=== PATIENT | male | born 1980 | race Two or more races ===

== ENCOUNTER 2024-04-29 20:49 | Emergency (ER) | payer OTHER, SELFPAY ==
[2024-04-29 20:54] VITALS: BP 130/92; PULSE 72; RESP 16; TEMP 36.3; O2SAT 97; BMI 29.8
--- OUTSIDE RECORDS SUMMARY | 2024-04-29 21:06 | XMS_ITS | Continuity of Care Document ---
Author Organization [facility] Plastic Shaheen ronald Address [address] [place] [address] Drstephane tr[address] [place] [address]- Care Team Providers Care Double End Production Grinder Name Role Phone Sophia Iverson MD Primary Care Physician [place] [facility] [place] - 09/27/22 [facility] [address] [place] [address]- Attending Physician: Danette De Jesus Admitting Physician: Danette De Jesus Referring Physician: AdmtrDanette Allergies, Adverse Reactions, Alerts No Known Allergies Medications Bactrim 400 mg-80 mg oral tablet By Mouth, Every 12 hours, 0 Refills, Maintenance, 05/27/22 11:11:00 EDT, Partial fill upon patient request if the prescription is for a schedule II opioid drug. Start Date: 05/27/22 Status: Ordered Patient Care team information Care Team Personnel Name: Sophia Iverson MD Position: [facility] Outreach Member Role: PCP Address: Address: [address] [place] [id number] Care Team Related Persons Name: HEAVENLY DUNN Address: home [address] [place], [place] Name: RENATO JANUARY Address: home [address] [place], [place] Name: POLLY VILLAVICENCIO Address: home [address] [place] [address] [place] [address]
--- OUTSIDE RECORDS SUMMARY | 2024-04-29 21:06 | XMS_ITS | Continuity of Care Document ---
Author Organization [facility] Plastic Shaheen roanld Address [address] [place] [address] [address] [place] [address]- Care Team Providers Care Hide Salter Name Role Phone Sophia Iverson MD Primary Care Physician [place] [facility] [place]s): 09/29/22 - 10/06/22 [facility] [address] [place] [address]- Attending Physician: Carlos PHILLIPS, Yimi Moore Allergies, Adverse Reactions, Alerts No Known Allergies Medications Bactrim 400 mg-80 mg oral tablet By Mouth, Every 12 hours, 0 Refills, Maintenance, 05/27/22 11:11:00 EDT, Partial fill upon patient request if the prescription is for a schedule II opioid drug. Start Date: 05/27/22 Status: Ordered Vital Signs Most recent to oldest [Reference Range]: 1 Height 170 cm (09/29/22 3:08 PM) Temperature [96.8-100.4 DegF] 97.0 DegF (09/29/22 3:08 PM) Temperature Route Temporal (09/29/22 3:08 PM) Patient Care team information Care Team Personnel Name: Sophia Iverson MD Position: [facility] Outreach Member Role: PCP Address: Address: [address] [place] [address]- Care Team Related Persons Name: HEAVENLY DUNN Address: home [address] [place] [address] Name: RENATO JANUARY Address: home [address] [place], [place] Name: POLLY VILLAVICENCIO Address: home [address] [place] [address] [place] [address]
--- OUTSIDE RECORDS SUMMARY | 2024-04-29 21:06 | XMS_ITS | Continuity of Care Document ---
Author Organization [facility] Address [address] [place] [address]- Care Team Providers Care Plastics Tooling Engineer Name Role Phone Sophia Iverson MD Primary Care Physician [phone] Encounter [facility] Date(s): 03/05/24 - 03/05/[address] [address]- Discharge Disposition: A-D/C Home Attending Physician: Nabil Mayfield MD Admitting Physician: Nabil Mayfield MD Referring Physician: Not on Staff, Referring MD Allergies, Adverse Reactions, Alerts No Known Allergies Medications acetaminophen 325 mg oral tablet 650 mg, 2, tablet, By Mouth, Every 4 hours, PRN, # 30 tablet, Refills 0, Tot. Refills 0, Maintenance, for pain, 09/19/23 17:40:00 EST, Route to Pharmacy Electronically, [facility]/pharmacy #[id number], Partial fill upon patient request if the prescription is for a... Start Date: 09/19/23 Status: Ordered Bactrim 400 mg-80 mg oral tablet By Mouth, Every 12 hours, 0 Refills, Maintenance, 05/27/22 11:11:00 EDT, Partial fill upon patient request if the prescription is for a schedule II opioid drug. Start Date: 05/27/22 Status: Ordered Results Radiology Reports * Exam Date Time Procedure Performing Provider Status 03/05/24 7:08 PM Chest 2 Views Frontal and Lat Ange Vazquez; Raz (Verified) Notes: (Chest 2 Views Frontal and Lat) Reason For Exam: Persistent Cough RESULT: Chest 2 Views Frontal and Lat Chest 2 Views Frontal and Lat Hx of Present Illness: Fist sized lump on the R side of patient's sternum that he noticed 1 days ago. Denies pain to the area.; Reason: Persistent Cough; Clinical Question(s): Pneumonia COMPARISON: 09/19/2023 FINDINGS: LINES AND TUBES: None. LUNGS AND PLEURA: Clear lungs. Normal pulmonary vascularity. No pleural effusion. No pneumothorax. HEART, MEDIASTINUM AND INNA: Heart is normal in size. Normal mediastinal and hilar contour. BONES AND SOFT TISSUES: No acute abnormality. IMPRESSION: No acute abnormality. WSN: [id number] Ordering Physician: Nabil Mayfield Dictated By: Jaxon Murillo MD Dictated Date/Time: 03/05/24 7:18 pm Reviewed By: Jaxon Murillo MD Signed By: Jaxon Murillo MD Signed Date/Time: 03/05/24 7:18 pm Transcribed By: PRAVEEN Transcribed Date/Time: 03/05/24 7:18 pm Vital Signs Most recent to oldest [Reference Range]: 1 2 Height 168 cm (03/05/24 9:43 PM) 168 cm (03/05/24 5:47 PM) Weight 84.5 kg (03/05/24 9:43 PM) 84.5 kg (03/05/24 5:47 PM) Oxygen Saturation [94-100 %] 97 % (03/05/24 7:00 PM) 99 % (03/05/24 5:46 PM) Pulse Rate [55-90 bpm] 61 bpm (03/05/24 7:00 PM) 79 bpm (03/05/24 5:46 PM) Blood Pressure [90-138/55-84 mm Hg] 120/ 80mm Hg (03/05/24 7:00 PM) 130/80mm Hg (03/05/24 5:47 PM) Respiratory Rate [16-30 br/min] 18 br/mi n (03/05/24 7:00 PM) 16 br/min (03/05/24 5:46 PM) Temperature [96.8-100.4 DegF] 98.4 DegF (03/05/24 5:47 PM) Mode of Delivery (Oxygen) Room air (03/05/24 7:00 PM) Room air (03/05/24 5:46 PM) Blood pressure sites Arm, left (03/05/24 7:00 PM) Arm, left (03/05/24 5:47 PM) Dry Weight 84.5 kg (03/05/24 9:43 PM) 84.5 kg (03/05/24 5:47 PM) Dry Weight Obtained Via Standing scale (03/05/24 5:47 PM) Social History Social History Type Response Tobacco Use: 4 or less cigar ettes(less than 1/4 pack)/day in last 30 days. Sex Patient Care team information Care Team Personnel Name: Sophia Iverson MD Position: [facility] Outreach Member Role: PCP Address: Address: [address] [place] [address]- Care Team Related Persons Name: HEAVENLY DUNN Address: home [address] [place] [address] Name: RENATOJanuary Address: home [address] [place] [address] Name: POLLY VILLAVICENCIO Address: home [address] [place] [address] [place] [address]
--- OUTSIDE RECORDS SUMMARY | 2024-04-29 21:06 | XMS_ITS | Continuity of Care Document ---
Author Organization [facility] Plastic Shaheen ronald Address [address] [place] [address] [address] [place] [address]- Care Team Providers Care Superannuation Funds Manager Name Role Phone Sophia Iverson MD Primary Care Physician [phone] Encounter [facility] Date(s): 02/26/22 - 03/28/22 [facility]astic [address] [place], [place] [address] Allergies, Adverse Reactions, Alerts No Known Allergies Medications No Home Meds Maintenance, 01/15/14 13:49:17, Compound Start Date: 01/15/14 Status: Ordered Problem List Condition Effective Dates Status Health Status Inform ant Obese class I(Confirmed) Active
--- OUTSIDE RECORDS SUMMARY | 2024-04-29 21:06 | XMS_ITS | Continuity of Care Document ---
Author Organization [facility] Plastic Shaheen [facility] Address [address] [place] [address] ve [address] [place] [address]- Care Team Providers Care Down Filler Name Role Phone Zayra PHILLIPS, Sophia Brown Primary Care Physician Encounter [facility] Date(s): 02/27/22 - 05/21/22 [facility] Plastic [address] [place], [place] [address] Attending Physician: Orion BARRERA, Milagros Carey Allergies, Adverse Reactions, Alerts No Known Allergies
--- OUTSIDE RECORDS SUMMARY | 2024-04-29 21:06 | XMS_ITS | Continuity of Care Document ---
Author Organization [facility] Plastic Shaheen ronald Address [address] [place] [address] [address] [place] [address]- Care Team Providers Care Housekeeping Director Name Role Phone Sophia Iverson MD Primary Care Physician [phone] Encounter [facility] [place] Date(s): 05/27/22 - 06/03/22 [facility]astic [address] [place], [place] [address] Attending Physician: Orion BARRERA, Milagros Carey Allergies, Adverse Reactions, Alerts No Known Allergies Medications Bactrim 400 mg-80 mg oral tablet By Mouth, Every 12 hours, 0 Refills, Maintenance, 05/27/22 11:11:00 EDT, Partial fill upon patient request if the prescription is for a schedule II opioid drug. Start Date: 05/27/22 Status: Ordered Cipro 500 mg oral tablet 1 tablet = 500 mg, By Mouth, Every 12 hours, for 7 days, # 14 tablet, 0 Refills, Acute 06/10/22 14:14:00 EDT, 06/03/22 14:14:00 EDT, Tablet, [facility]/pharmacy #[id number], Partial fill upon patient request if the prescription is for a schedule II opioid drug., 1... Start Date: 06/03/22 Stop Date: 06/10/22 Status: Ordered Vital Signs Most recent to oldest [Reference Range]: 1 Height 170 cm (05/27/22 11:09 AM) Weight 86.1 kg (05/27/22 11:09 AM) Body Mass Index [18.5-24.99] 29.79 *H* (05/27/22 11:09 AM) Temperature [96.8-100.4 DegF] 98.9 DegF (05/27/22 11:09 AM) Temperature Route Temporal (05/27/22 11:09 AM) Weight Obtained Via Standing scale (05/27/22 11:09 AM) Care Team Personnel Name: Sophia Iverson MD Address: [address] [place] [address] [address]
--- OUTSIDE RECORDS SUMMARY | 2024-04-29 21:06 | XMS_ITS | Continuity of Care Document ---
Author Organization [facility] Plastic Shaheen ronald Address [address] [place] [address] [address] [place] [address]- Care Team Providers Care Retail Beauty Specialist Name Role Phone Sophia Iverson MD Primary Care Physician Encounter [facility] Date(s): 01/30/21 - 03/01/21 [facility] Plastic [address] [place], [place] [address] Allergies, Adverse Reactions, Alerts Substance Reaction Severity Status NKA Active Medications No Home Meds Maintenance, 01/15/14 13:49:17, Compound Start Date: 01/15/14 Status: Ordered
--- OUTSIDE RECORDS SUMMARY | 2024-04-29 21:06 | XMS_ITS | Continuity of Care Document ---
Author Organization [facility]astic Shaheen ronlad Address [address] [place] [address] [address] [place] [address]- Care Team Providers Care Heel Coverer Name Role Phone Sophia Iverson MD Primary Care Physician [phone] Encounter [facility] Date(s): 12/23/20 - 12/30/20 [facility]astic [address] [place] [address]- Attending Physician: Jak Lazcano MD Allergies, Adverse Reactions, Alerts Substance Reaction Severity Status NKA Active Medications No Home Meds Maintenance, 01/15/14 13:49:17, Compound Start Date: 01/15/14 Status: Ordered Vital Signs Most recent to oldest [Reference Range]: 1 Height 173 cm (12/23/20 3:58 PM) Weight 83.4 kg (12/23/20 3:58 PM) Pulse Rate [55-90 bpm] 66 bpm (12/23/20 3:58 PM) Body Mass Index [18.5-24.99] 27.87 *H* (12/23/20 3:58 PM) Blood Pressure [90-138/55-84 mm Hg] 136/ 72mm Hg (12/23/20 3:58 PM) Temperature [96.8-100.4 DegF] 97.2 DegF (12/23/20 3:58 PM) Blood pressure sites Arm, left (12/23/20 3:58 PM) Temperature Route Temporal (12/23/20 3:58 PM)
--- OUTSIDE RECORDS SUMMARY | 2024-04-29 21:06 | XMS_ITS | Continuity of Care Document ---
Author Organization [facility] Plastic Shaheen ronald Address [address] [place] [address] Drstephane tr[address] [place] [address]- Care Team Providers Care Barrel Raiser Helper Name Role Phone Sophia Iverson MD Primary Care Physician Encounter [facility] [place] Date(s): 05/21/23 - 06/20/23 [facility] Plastic [address] [place] [address]- Attending Physician: Danette De Jesus Admitting Physician: [...] Team Personnel Name: Sophia Iverson MD Position: [facility] Outreach Member Role: PCP Address: Address: [address] [place] [id number] Care Team Related Persons Name: HEAVENLY DUNN Address: home [address] [place], [place] Name: RENATO JANUARY Address: [address] [place], [place] Name: POLLY VILLAVICENCIO Address: home [address] [place] [address] [place] [address]
--- OUTSIDE RECORDS SUMMARY | 2024-04-29 21:06 | XMS_ITS | Continuity of Care Document ---
Author Organization [facility] Plastic Shaheen ronald Address [address] [place] [address] Pamela tr[address] [place] [address]- Care Team Providers Care In Store Marketing Associate Name Role Phone Sophia Iverson MD Primary Care Physician Encounter [facility] [place] Date(s): 09/08/22 - 10/08/[address] [place] [address]- Allergies, Adverse Reactions, Alerts No Known Allergies Medications Bactrim 400 mg-80 mg oral tablet By Mouth, Every 12 hours, 0 Refills, Maintenance, 05/27/22 11:11:00 EDT, Partial fill upon patient request if the prescription is for a schedule II opioid drug. Start Date: 05/27/22 Status: Ordered Patient Care team information Care Team Personnel Name: Sophia Iverson MD Position: [facility] Outreach Member Role: PCP Address: Address: [address] [place] [address]- Care Team Related Persons Name: HEAVENLY DUNN Address: [address] [place], [place] Name: RENATOJanuary Address: [address] [place], [place] Name: POLLY VILLAVICENCIO Address: home [address] [place] [address] [place] [address]
--- OUTSIDE RECORDS SUMMARY | 2024-04-29 21:06 | XMS_ITS | Continuity of Care Document ---
Author Organization [facility] Plastic [facility] Address [address] [place] [address] [address] [place] [address]- Care Team Providers Care Early Head Start Director Name Role Phone Sophia Iverson MD Primary Care Physician [phone] En[place] [facility] [place] Date(s): 07/09/22 - 08/08/[address] [place] [address]- Allergies, Adverse Reactions, Alerts No Known Allergies Medications Bactrim 400 mg-80 mg oral tablet By Mouth, Every 12 hours, 0 Refills, Maintenance, 05/27/22 11:11:00 EDT, Partial fill upon patient request if the prescription is for a schedule II opioid drug. Start Date: 05/27/22 Status: Ordered Patient Care team information Personnel Name: Sophia Iverson MD Address: Address: [address] [place] [address]
--- OUTSIDE RECORDS SUMMARY | 2024-04-29 21:06 | XMS_ITS | Continuity of Care Document ---
Author Organization [facility] Plastic Shaheen [facility] Address [address] [place] [address] [address] [place] [address]- Care Team Providers Care Waiver Analyst Name Role Phone Sophia Iverson MD Primary Care Physician [phone] Encounter [facility] Date(s): 05/22/22 - 06/21/[address] [place], [place] [address] Allergies, Adverse Reactions, Alerts No Known Allergies Medications Bactrim 400 mg-80 mg oral tablet By Mouth, Every 12 hours, 0 Refills, Maintenance, 05/27/22 11:11:00 EDT, Partial fill upon patient request if the prescription is for a schedule II opioid drug. Start Date: 05/27/22 Status: Ordered Care Team Personnel Name: Sophia Iverson MD Address: [address] [place] [id number]
--- OUTSIDE RECORDS SUMMARY | 2024-04-29 21:06 | XMS_ITS | Continuity of Care Document ---
Author Organization [facility] Address [address] [place] [address]- Care Team Providers Care Vice President Marketing & Development Name Role Phone Sophia Iverson MD Primary Care Physician [phone] En[place] [facility] [place] Date(s): 11/21/20 - 11/21/[address] [address] Discharge Disposition: A-D/C Home Attending Physician: Pedro Moralez MD Admitting Physician: Pedro Moralez MD Referring Physician: Pedro Moralez MD Allergies, Adverse Reactions, Alerts Substance Reaction Severity Status NKA Active Medications No Home Meds Maintenance, 01/15/14 13:49:17, Compound Start Date: 01/15/14 Status: Ordered Vital Signs Most recent to oldest [Reference Range]: 1 2 3 Oxygen Saturation [94-100 %] 100 % (11/21/20 9:22 AM) 99 % (11/21/20 9:18 AM) 99 % (11/21/20 9:13 AM) Pulse Rate [55-90 bpm] 74 bpm (11/21/20 7:30 AM) Blood Pressure [90-138/55-84 mm Hg] 113/72mm Hg (11/21/20 9:22 AM) 108/71mm Hg (11/21/20 9:18 AM) 106/70mm Hg (11/21/20 9:13 AM) Respiratory Rate [16-30 br/min] 18 br/min (11/21/20 9:22 AM) 18 br/min (11/21/20 9:18 AM) 16 br/min (11/21/20 9:13 AM) Temperature [96.8-100.4 DegF] 98 DegF (11/21/20 7:30 AM) Mode of Delivery (Oxygen) Room air (11/21/20 9:22 AM) Room air (11/21/20 9:18 AM) Room air (11/21/20 9:13 AM) Temperature Route Oral (11/21/20 7:30 AM)
--- OUTSIDE RECORDS SUMMARY | 2024-04-29 21:06 | XMS_ITS | Continuity of Care Document ---
Author Organization [facility] Plastic Shaheen ronald Address [address] [place] [address] [address] [place] [address]- Care Team Providers Care Plastic Parts Fabricator Name Role Phone Sophia Iverson MD Primary Care Physician Encounter [facility] Date(s): 12/26/19 - 01/05/20 [facility]astic [address] [place] [address]- [facility] Attending Physician: Admtr, Danette Admitting Physician: AdmtrDanette Referring Physician: Admtr, Ar8 Allergies, Adverse Reactions, Alerts Substance Reaction Severity Status NKA Active Medications No Home Meds Maintenance, 01/15/14 13:49:17, Compound Start Date: 01/15/14 Status: Ordered
--- OUTSIDE RECORDS SUMMARY | 2024-04-29 21:06 | XMS_ITS | Continuity of Care Document ---
Author Organization [facility] Plastic Shaheen ronald Address [address] [place] [address] [address] [place] [address]- Care Team Providers Care Gristmill Operator Name Role Phone Sophia Iverson MD Primary Care Physician [phone] Encounter [facility] Date(s): 03/26/22 - 04/02/22 [facility] [address] [place] [address] Drive [address] [place] [address]- Attending Physician: Carlos PHILLIPS, Yimi Moore Referring Physician: Sophia Iverson MD Allergies, Adverse Reactions, Alerts No Known Allergies Medications No Home Meds Maintenance, 01/15/14 13:49:17, Compound Start Date: 01/15/14 Status: Ordered Problem List Condition Effective Dates Status Health Status Inform ant Obese class I(Confirmed) Active Vital Signs Most recent to oldest [Reference Range]: 1 Height 173 cm (03/26/22 10:26 AM) Weight 90.00 kg (03/26/22 10:26 AM) Pulse Rate [55-90 bpm] 53 bpm *L* (03/26/22 10:26 AM) Body Mass Index [18.5-24.99] 30.07 *>HHI* (03/26/22 10:26 AM) Blood Pressure [90-138/55-84 mm Hg] 137/ 79mm Hg (03/26/22 10:26 AM) Respiratory Rate [16-30 br/min] 17 br/mi n (03/26/22 10:26 AM) Temperature [96.8-100.4 DegF] 96.8 DegF (03/26/22 10:26 AM) Blood pressure sites Leg, right (03/26/22 10:26 AM) Temperature Route Temporal (03/26/22 10:26 AM) Weight Obtained Via Standing scale (03/26/22 10:26 AM)
--- OUTSIDE RECORDS SUMMARY | 2024-04-29 21:06 | XMS_ITS | Continuity of Care Document ---
Author Organization [facility] Plastic Shaheen ronald Address [address] [place] [address] [address] [place] [address]- Care Team Providers Care Talent Acquisition Relationship Manager Name Role Phone Sophia Iverson MD Primary Care Physician Encounter [facility] Date(s): 11/09/19 - 01/25/20 [facility]astic [address] [place] [address]- [facility] Attending Physician: Jak Lazcano MD Referring Physician: Not on Staff, Referring MD Allergies, Adverse Reactions, Alerts Substance Reaction Severity Status NKA Active Medications No Home Meds Maintenance, 01/15/14 13:49:17, Compound Start Date: 01/15/14 Status: Ordered
--- OUTSIDE RECORDS SUMMARY | 2024-04-29 21:06 | XMS_ITS | Continuity of Care Document ---
Author Organization [facility] Plastic Shaheen ronald Address [address] [place] [address] Pamela tr[address] [place] [address]- Care Team Providers Care Foot Miter Operator Name Role Phone Sophia Iverson MD Primary Care Physician En[place] [facility] [place] Date(s): 05/21/23 - 06/20/23 [facility]astic [address] [place] [address]- Allergies, Adverse Reactions, Alerts No Known Allergies Medications Bactrim 400 mg-80 mg oral tablet By Mouth, Every 12 hours, 0 Refills, Maintenance, 05/27/22 11:11:00 EDT, Partial fill upon patient request if the prescription is for a schedule II opioid drug. Start Date: 05/27/22 Status: Ordered Patient Care team information Care Team Personnel Name: Sophia Iverson MD Position: [facility] Outreach Member Role: PCP Address: Address: [address] [place] [address]- Care Team Related Persons Name: HEAVENLY DUNN Address: [address] [place], [place] Name: RENATOJanuary Address: [address] [place], [place] Name: POLLY VILLAVICENCIO Address: home [address] [place] [address] [place] [address]
--- OUTSIDE RECORDS SUMMARY | 2024-04-29 21:06 | XMS_ITS | Continuity of Care Document ---
Author Organization [facility] Plastic Shaheen ronald Address [address] [place] [address] [address] [place] [address]- Care Team Providers Care Data Officer Name Role Phone Sophia Iverson MD Primary Care Physician Encounter [facility] Date(s): 02/27/21 - 03/29/21 [facility] Plastic [address] [place], [place] [address] Attending Physician: AdmtrDanette Admitting Physician: AdmtrDanette Referring Physician: Admtr, Ar8 Allergies, Adverse Reactions, Alerts Substance Reaction Severity Status NKA Active Medications No Home Meds Maintenance, 01/15/14 13:49:17, Compound Start Date: 01/15/14 Status: Ordered
--- OUTSIDE RECORDS SUMMARY | 2024-04-29 21:06 | XMS_ITS | Continuity of Care Document ---
Author Organization [facility] Plastic Shaheen ronald Address [address] [place] [address] [address] [place] [address]- Care Team Providers Care Second Chef Name Role Phone Sophia Iverson MD Primary Care Physician Encounter [facility] Date(s): 05/31/20 - 06/30/20 [facility] Plastic [address] [place] [address]- [facility] Allergies, Adverse Reactions, Alerts Substance Reaction Severity Status NKA Active Medications No Home Meds Maintenance, 01/15/14 13:49:17, Compound Start Date: 01/15/14 Status: Ordered
--- OUTSIDE RECORDS SUMMARY | 2024-04-29 21:06 | XMS_ITS | Continuity of Care Document ---
Author Organization [facility] al Address [address] [place] [address]- Care Team Providers Care Literacy Coordinator Name Role Phone Sophia Iverson MD Primary Care Physician [phone] [facility] Date(s): 04/30/22 - 04/30/[address] [address]- Discharge Disposition: A-D/C Home Attending Physician: Tutu Cevallos MD Admitting Physician: Tutu Cevallos MD Referring Physician: Not on Staff, Referring MD Allergies, Adverse Reactions, Alerts No Known Allergies Medications cephalexin monohydrate 500 mg oral capsule 1 capsule = 500 mg, By Mouth, 3 times a day, for 7 days, # 21 capsule, 0 Refills, Acute 05/07/22 20:11:00 EDT, 04/30/22 20:11:00 EDT, Capsule, [id number], Partial fill upon patient request ifthe prescription is for a schedule II opioid drug.,... Start Date: 04/30/22 Stop Date: 05/07/22 Status: Ordered Vital Signs Most recent to oldest [Reference Range]: 1 2 Height 170 cm (04/30/22 7:28 PM) 170 cm (04/30/22 7:27 PM) Weight 86.1 kg (04/30/22 7:28 PM) 86.1 kg (04/30/22 7:27 PM) Oxygen Saturation [94-100 %] 97 % (04/30/22 7:28 PM) Pulse Rate [55-90 bpm] 102 bpm *H* (04/30/22 7:28 PM) Body Mass Index [18.5-24.99] 29.79 *H* (04/30/22 7:27 PM) Blood Pressure [90-138/55-84 mm Hg] 147/ 92mm Hg *H* (04/30/22 7:28 PM) Respiratory Rate [16-30 br/min] 17 br/mi n (04/30/22 7:28 PM) Temperature [96.8-100.4 DegF] 97.9 DegF (04/30/22 7:28 PM) Mode of Delivery (Oxygen) Room air (04/30/22 7:28 PM) Blood pressure sites Arm, right (04/30/22 7:28 PM) Temperature Route Oral (04/30/22 7:28 PM) Dry Weight 86.1 kg (04/30/22 7:28 PM) 86.1 kg (04/30/22 7:27 PM) Weight Obtained Via Standing scale (04/30/22 7:27 PM) Dry Weight Obtained Via Standing scale (04/30/22 7:27 PM)
--- OUTSIDE RECORDS SUMMARY | 2024-04-29 21:07 | XMS_ITS | Continuity of Care Document ---
Author Organization [facility] Shaheen ronald Address [address] [place] [address] [address] [place] [address]- Care Team Providers Care River Expedition Guide Name Role Phone Sophia Iverson MD Primary Care Physician [facility]counter [facility] Date(s): 02/27/21 - 03/06/21 [facility] [address] [place] [address]- Attending Physician: Yimi Gonzalez MD Allergies, Adverse Reactions, Alerts Substance Reaction Severity Status NKA Active Medications No Home Meds Maintenance, 01/15/14 13:49:17, Compound Start Date: 01/15/14 Status: Ordered Procedures Procedure Date Related Diagnosis Body Site Status Inguinal hernia Completed Vital Signs Most recent to oldest [Reference Range]: 1 Height 173 cm (02/27/21 3:23 PM) Weight 81.81 kg (02/27/21 3:23 PM) Body Mass Index [18.5-24.99] 27.33 *H* (02/27/21 3:23 PM) Temperature [96.8-100.4 DegF] 97.9 DegF (02/27/21 3:23 PM) Temperature Route Temporal (02/27/21 3:23 PM) Weight Obtained Via Standing scale (02/27/21 3:23 PM)
--- OUTSIDE RECORDS SUMMARY | 2024-04-29 21:07 | XMS_ITS | Continuity of Care Document ---
Author Organization [facility] Shaheen ronald Address [address] [place] [address] Pamela traylor [address] [place] [address]- Care Team Providers Care Driver Operator Name Role Phone Sophia Iverson MD Primary Care Physician Encounter [facility] Date(s): 08/31/22 - 09/30/22 [facility] [address] [place] [address]- Allergies, Adverse Reactions, Alerts No Known Allergies Medications Bactrim 400 mg-80 mg oral tablet By Mouth, Every 12 hours, 0 Refills, Maintenance, 05/27/22 11:11:00 EDT, Partial fill upon patient request if the prescription is for a schedule II opioid drug. Start Date: 05/27/22 Status: Ordered Patient Care team information Care Team Personnel Name: Sophia Iverson MD Position: [facility] Outreach Member Role: PCP Address: Address: [address] [place] [address]- Care Team Related Persons Name: HEAVENLY DUNN Address: home [address], [place] Name: RENATO JANUARY Address: home [address], [place] Name: POLLY VILLAVICENCIO Address: home [address] [place] [address] [place] [address]
--- OUTSIDE RECORDS SUMMARY | 2024-04-29 21:07 | XMS_ITS | Continuity of Care Document ---
Author Organization [facility] Shaheen ronald Address [address] [place] [address] [address] [place] [address]- Care Team Providers Care President Finance Company Name Role Phone Sophia Iverson MD Primary Care Physician [facility]counter [facility] Date(s): 02/10/22 - 03/12/22 [facility] [address] [place], [place] [address] Allergies, Adverse Reactions, Alerts No Known Allergies Medications No Home Meds Maintenance, 01/15/14 13:49:17, Compound Start Date: 01/15/14 Status: Ordered
--- OUTSIDE RECORDS SUMMARY | 2024-04-29 21:07 | XMS_ITS | Continuity of Care Document ---
Author Organization [facility] al Address [address] [place] [address]- Care Team Providers Care Solution Developer Name Role Phone Sophia Iverson MD Primary Care Physician Encounter [facility] Date(s): 09/19/23 - 09/19/[address] [address]- Encounter Diagnosis Influenza(Final) - 09/19/23 Discharge Disposition: A-D/C Home Attending Physician: Juan Powers MD Admitting Physician: Juan Powers MD Referring Physician: Not on Staff, Referring MD Allergies, Adverse Reactions, Alerts No Known Allergies Medications acetaminophen 325 mg oral tablet 650 mg, 2, tablet, By Mouth, Every 4 hours, PRN, # 30 tablet, Refills 0, Tot. Refills 0, Maintenance, for pain, 09/19/23 17:40:00 EST, [facility], [id number], Partial fill upon patient request if the prescription is for a... Start Date: 09/19/23 Status: Ordered Bactrim 400 mg-80 mg oral tablet By Mouth, Every 12 hours, 0 Refills, Maintenance, 05/27/22 11:11:00 EDT, Partial fill upon patient request if the prescription is for a schedule II opioid drug. Start Date: 05/27/22 Status: Ordered ibuprofen 200 mg oral capsule 2 capsule = 400 mg, By Mouth, Every 4 hours, PRN for pain, # 120 capsule, 0 Refills, Acute 09/20/2317:41:00 EST, 09/19/23 17:40:00 EST, [facility]apsule, [id number], Partial fill upon patient requestif the prescription is for a schedule II opioid manuela... Start Date: 09/19/23 Stop Date: 09/20/23 Status: Ordered Results Orders for Microbiology Reports Name Date Group A Strep Screen and Culture 3 Microbiology Reports TEST:Group A Strep Screen and Culture STATUS:Unauthenticated BODY SITE: SOURCE:THROAT COLLECTED DATE/TIME:09/19/23 5:15 PM Group A Strep Screen and Culture SPECIMEN DESCRIPTION : THROAT SWAB SPECIAL REQUESTS : NONE DIRECT EXAM : RAPID GROUP A RESULT IS NEGATIVE, REFER TO CULTURE RESULT. REPORT STATUS : PRELIMINARY REPORT Radiology Reports * Exam Date Time Procedure Performing Provider Status 09/19/23 4:42 PM Chest 2 Views Frontal and Lat Fransisco Henriquez T; Auth (Verified) Notes: (Chest 2 Views Frontal and Lat) Reason For Exam: Shortness of Breath, Fever;Other: RESULT: Chest 2 Views Frontal and Lat Chest 2 Views Frontal and Lat Hx of Present Illness: cough and shortness of breath x5 days with intermittent chest pain-worse while coughing; Reason: Other:; Shortness of Breath, Fever; Clinical Question(s): Pneumonia COMPARISON: 12/27/16 FINDINGS: LINES AND TUBES: None. LUNGS AND PLEURA: Clear lungs. Normal pulmonary vascularity. No pleural effusion. No pneumothorax. HEART, MEDIASTINUM AND INNA: Heart is normal in size. Normal mediastinal and hilar contour. BONES AND SOFT TISSUES: No acute abnormality. IMPRESSION: No acute abnormality. WSN: [id number] Ordering Physician: Juan Powers Dictated By: Jaxon Murillo MD Dictated Date/Time: 09/19/23 4:52 pm Reviewed By: Jaxon Murillo MD Signed By: Jaxon Murillo MD Signed Date/Time: 09/19/23 4:52 pm Transcribed By: PRAVEEN Transcribed Date/Time: 09/19/23 4:51 pm Vital Signs Most recent to oldest [Reference Range]: 1 2 3 Height 170 cm (09/19/23 5:54 PM) 170 cm (09/19/23 2:50 PM) Weight 87.8 kg (09/19/23 5:54 PM) 87.8 kg (09/19/23 2:50 PM) Oxygen Saturation [94-100 %] 100 % (09/19/23 5:54 PM) 97 % (09/19/23 5:53 PM) 97 % (09/19/23 2:49 PM) Pulse Rate [55-90 bpm] 60 bpm (09/19/23 5:54 PM) 70 bpm (09/19/23 5:53 PM) 75 bpm (09/19/23 2:49 PM) Body Mass Index [18.5-24.99 kg/m2] 30.38 kg/m2 *>HHI* (09/19/23 5:54 PM) Blood Pressure [90-138/55-84 mm Hg] 136/90mm Hg (09/19/23 5:54 PM) 130/82mm Hg (09/19/23 5:53 PM) 133/86mm Hg (09/19/23 2:50 PM) Respiratory Rate [16-30 br/min] 18 br/min (09/19/23 5:54 PM) 18 br/min (09/19/23 5:53 PM) 18 br/min (09/19/23 2:49 PM) Temperature [96.8-100.4 DegF] 98.3 DegF (09/19/23 5:54 PM) 97.0 DegF (09/19/23 2:50 PM) Mode of Delivery (Oxygen) Room air (09/19/23 5:54 PM) Room air (09/19/23 5:53 PM) Room air (09/19/23 2:49 PM) Blood pressure sites Arm, right (09/19/23 5:54 PM) Arm, left (09/19/23 5:53 PM) Arm, left (09/19/23 2:50 PM) Temperature Route Oral (09/19/23 5:54 PM) Temporal (09/19/23 2:50 PM) Dry Weight 87.8 kg (09/19/23 5:54 PM) 87.8 kg (09/19/23 2:50 PM) Dry Weight Obtained Via Standing scale (09/19/23 2:50 PM) Social History Social History Type Response Tobacco Use: 4 or less cigar ettes(less than 1/4 pack)/day in last 30 days. Sex Note * Juan Powers MD: PERFORM Event Display: Patient Education Leaflets Authored Date: [id number] Influenza (Adult) ?? [id number] Influenza (Adult) Updated for the flu season Influenza is also called the flu. It's a viral illness that affects the air passages of your nose, sinuses, throat, and lungs. It's different from the common cold. The flu can easily be passed from one to person to another. It may be spread through the air by coughing and sneezing. It can also be spread by touching the sick person and then touching your own eyes, nose, or mouth. The flu starts 1 to 3 days after you are exposed to the flu virus. It may last??for 1 to 2 weeks but sometimes people feel tired or fatigued for many weeks afterward. You usually don???t need to takeantibiotics unless you are at high risk for or have a complication from a bacterial infection. Thismight be an ear or sinus infection or pneumonia. Flu symptoms may be mild or severe. They can include extreme tiredness (wanting to stay in bed all day), chills, fevers, muscle aches, soreness with eye movement, headache, and a dry, hacking cough. Antiviral medicine for the flu is available by prescription. If you start taking it within 48 hours, it may help reduce how long your symptoms last and how severe they are. Your provider may do a test to find out if you have influenza and which strain you have. Home care Follow these guidelines when caring for yourself at home: ??? Stay away from cigarette smoke, whether it's yours or other people???s. ??? Acetaminophen or ibuprofen will help ease your fever, muscle aches, and headache. Don???t give aspirin to anyone younger than 18 who has the flu. This can cause a serious condition called Myesha syndrome. ??? Nausea, loose stools, and loss of appetite are common with the flu. Eat light meals. Drink 6 to 8 glasses of liquids every day. Good choices are water, sport drinks, soft drinks without caffeine, juices, tea, and soup. Extra fluids will also help loosen secretions in your nose and lungs. ??? Phlg-fzh-hfgmkql cold medicines will not make the flu go awayfaster. But the medicines may help with coughing, sore throat, and congestion in your nose and sinuses. Don???t use a decongestant if you have high blood pressure. ??? Stay home until your fever has been gone for at least 24 hours without using medicine to reduce fever. ?? Follow-up care Follow up with your healthcare provider, or as advised, if you're not getting better over the next week. If you're age 65 or older, talk with your provider about getting a pneumococcal vaccine. You shouldalso get vaccinated against pneumococcal pneumoniae at other ages if you have a weak immune system,chronic asthma, COPD (chronic obstructive pulmonary disorder), or certain other conditions. With very few exceptions, all adults should get a flu vaccine every fall. June and July are generally good times to get vaccinated. Ask your provider about this. ?? When to get medical advice Call your healthcare provider right away if you have the flu and any of these occur: ??? Cough with lots of colored mucus (sputum) or blood in your mucus ??? Chest pain, shortness of breath, wheezing, or trouble breathing ??? Severe headache, or face, neck, or ear pain ??? New rash??with fever ??? Fever of 100.4??F (38??C)??or higher, or as??advised by your provider ??? Confusion, behavior change, or seizure ??? Severe weakness or dizziness ??? You get a new??fever or cough aftergetting better for a few days Also call your provider if you have flu symptoms and have a weakened immune system or are taking medicines that can weaken your immune system. These include steroids and certain anti-inflammatory medicines. ?? Last Reviewed Date: 2022 ?? 4829-4529 [employer]. All rights reserved. This information is not intended as a substitute for professional medical care. Always follow your healthcare professional's instructions. ?? Patient Care team information Care Team Personnel Name: Sophia Iverson MD Position: [facility] Outreach Member Role: PCP Address: Address: [address] [place] [address]- [place] Name: Juan Powers MD Position: [facility] ED Medicine MD Member Role: Admitting Physician Address: Address: [address] [place] [address]- Name: Jeanne Pollard RN Position: [facility] ED RN W/OE and Tasks Member Role: Patient Care Provider Name: Vilma Marrufo Position: [facility] ED TA [facility] Member Role: Oncology Radiation Physician Care Team Related Persons Name: HEAVENLY DUNN Address: [address] [place] [address] Name: RENATO JANUARY Address: [address] [place] [address] Name: POLLY VILLAVICENCIO Address: home [address] [place] [address] [place] [address]
--- OUTSIDE RECORDS SUMMARY | 2024-04-29 21:07 | XMS_ITS | Continuity of Care Document ---
Author Organization [facility] Shaheen ronald Address [address] [place] [address] Pamela tr[address] [place] [address]- Care Team Providers Care Order Booker Name Role Phone Sophia Iverson MD Primary Care Physician [phone] Encounter [facility] Date(s): 01/19/23 - 02/18/23 [facility] [address] [place] [address]- Allergies, Adverse Reactions, Alerts No Known Allergies Medications Bactrim 400 mg-80 mg oral tablet By Mouth, Every 12 hours, 0 Refills, Maintenance, 05/27/22 11:11:00 EDT, Partial fill upon patient request if the prescription is for a schedule II opioid drug. Start Date: 05/27/22 Status: Ordered Patient Care team information Care Team Personnel Name: Sophia Iverson MD Position: [facility] Outreach Member Role: PCP Address: Address: [address] [place] [address]- Care Team Related Persons Name: HEAVENLY DUNN Address: [address], [place] Name: RENATOJanuary Address: [address], [place] Name: POLLY VILLAVICENCIO Address: home [address] [place] [address] [place] [address]
--- OUTSIDE RECORDS SUMMARY | 2024-04-29 21:07 | XMS_ITS | Continuity of Care Document ---
Author Organization [facility] Shaheen ronald Address [address] [place] [address] [address] [place] [address]- Care Team Providers Care Rn Acute Dialysis Name Role Phone Sophia Iverson MD Primary Care Physician [facility] Date(s): 03/25/22 - 04/24/22 [facility] [address] [place], [place] [address] Allergies, Adverse Reactions, Alerts No Known Allergies Medications No Home Meds Maintenance, 01/15/14 13:49:17, Compound Start Date: 01/15/14 Status: Ordered Problem List Condition Effective Dates Status Health Status Inform ant Obese class I(Confirmed) Active
--- OUTSIDE RECORDS SUMMARY | 2024-04-29 21:07 | XMS_ITS | Continuity of Care Document ---
Author Organization [facility] Shaheen ronald Address [address] [place] [address] [address] [place] [address]- Care Team Providers Care Biomedical Service Engineer Name Role Phone Sophia Iverson MD Primary Care Physician [facility]counter [facility] Date(s): 12/23/20 - 01/22/21 [facility] [address] [place], [place] [address] Attending Physician: AdmDanette bragg Admitting Physician: Admtr, Ar8 Referring Physician: Admtr, Ar8 Allergies, Adverse Reactions, Alerts Substance Reaction Severity Status NKA Active Medications No Home Meds Maintenance, 01/15/14 13:49:17, Compound Start Date: 01/15/14 Status: Ordered
--- OUTSIDE RECORDS SUMMARY | 2024-04-29 21:07 | XMS_ITS | Continuity of Care Document ---
Author Organization [facility] Shaheen ronald Address [address] [place] [address] [address] [place] [address]- Care Team Providers Care Organ Recovery Coordinator Name Role Phone Sophia Iverson MD Primary Care Physician [phone] Encounter [facility] Date(s): 04/23/20 - 05/23/20 [facility] [address] [place] [address]- [facility] Allergies, Adverse Reactions, Alerts Substance Reaction Severity Status NKA Active Medications No Home Meds Maintenance, 01/15/14 13:49:17, Compound Start Date: 01/15/14 Status: Ordered
--- OUTSIDE RECORDS SUMMARY | 2024-04-29 21:07 | XMS_ITS | Continuity of Care Document ---
Author Organization [facility] ter Address [address] [place] [address]- Care Team Providers Care Interlocking Machine Operator Name Role Phone Sophia Iverson MD Primary Care Physician [phone] Encounter [facility] [place] Date(s): 04/13/22 - 04/13/[address] [address]- Discharge Disposition: A-D/C Home Attending Physician: Yimi Gonzalez MD Admitting Physician: Yimi Gonzalez MD Referring Physician: Yimi Gonzalez MD Allergies, Adverse Reactions, Alerts No Known Allergies Medications acetaminophen 325 mg oral capsule 2 capsule = 650 mg, By Mouth, 4 times a day, PRN Pain , Mild, for 10 days, # 80 capsule, 0 Refills,Acute 04/23/22 14:48:00 EDT, 04/13/22 14:48:00 EDT, [facility]apsule, [id number], Partial fill upon patient request if the prescription is for a schedul... Start Date: 04/13/22 Stop Date: 04/23/22 Status: Ordered cephalexin monohydrate 500 mg oral capsule 1 capsule = 500 mg, By Mouth, Every 8 hours, for 7 days, # 21 capsule, 0 Refills, Acute 04/20/22 14:47:00 EDT, 04/13/22 14:47:00 EDT, Capsule, [id number], Partial fill upon patient request ifthe prescription is for a schedule II opioid drug.,... Start Date: 04/13/22 Stop Date: 04/20/22 Status: Ordered ibuprofen 600 mg oral tablet 600 mg, 1, tablet, By Mouth, Every 8 hours, for 10 days, # 30 tablet, Refills 0, Tot. Refills 0, Acute 04/23/22 14:48:00 EDT, 04/13/22 14:48:00 EDT, Route to Pharmacy Electronically, [id number], Partial fill upon patient request if the prescri... Start Date: 04/13/22 Stop Date: 04/23/22 Status: Ordered No Home Meds Maintenance, 01/15/14 13:49:17, Compound Start Date: 01/15/14 Status: Ordered oxyCODONE 5 mg oral tablet 5 mg, 1, tablet, By Mouth, Every 6 hours, PRN, for 3 days, # 12 tablet, Refills 0, Tot. Refills 0, Acute 04/16/22 14:47:00 EDT, for pain, 04/13/22 14:47:00 EDT, Route to Pharmacy Electronically, [facility]/pharmacy #[id number], Partial fill upon patient request if... Start Date: 04/13/22 Stop Date: 04/16/22 Status: Ordered Zofran 4 mg oral tablet 1 tablet = 4 mg, By Mouth, Every 8 hours, PRN Nausea, for 3 days, # 9 tablet, 1 Refills, Acute 04/19/22 14:49:00 EDT, 04/13/22 14:49:00 EDT, [facility]t, [id number], Partial fill upon patient request if the prescription is for a schedule II opioid... Start Date: 04/13/22 Stop Date: 04/19/22 Status: Ordered Problem List Condition Effective Dates Status Health Status Inform ant Obese class I(Confirmed) Active Vital Signs Most recent to oldest [Reference Range]: 1 2 3 Weight 86.6 kg (04/13/22 1:50 PM) Oxygen Saturation [94-100 %] 96 % (04/13/22 5:15 PM) 95 % (04/13/22 5:00 PM) 97 % (04/13/22 4:45 PM) Pulse Rate [55-90 bpm] 60 bpm (04/13/22 1:50 PM) Blood Pressure [90-138/55-84 mm Hg] 134/89mm Hg (04/13/22 5:15 PM) 137/83mm Hg (04/13/22 5:00 PM) 137/90mm Hg (04/13/22 4:45 PM) Respiratory Rate [16-30 br/min] 18 br/min (04/13/22 5:15 PM) 17 br/min (04/13/22 5:00 PM) 16 br/min (04/13/22 4:45 PM) Temperature [96.8-100.4 DegF] 98 DegF (04/13/22 5:15 PM) 97.8 DegF (04/13/22 4:15 PM) 97.6 DegF (04/13/22 1:50 PM) Mode of Delivery (Oxygen) Room air (04/13/22 5:15 PM) Room air (04/13/22 5:00 PM) Room air (04/13/22 4:45 PM) Blood pressure sites Arm, left (04/13/22 1:50 PM) Temperature Route Temporal (04/13/22 5:15 PM) Temporal (04/13/22 4:15 PM) Temporal (04/13/22 1:50 PM) Dry Weight 86.6 kg (04/13/22 1:50 PM) Weight Obtained Via Standing scale (04/13/22 1:50 PM) Dry Weight Obtained Via Standing scale (04/13/22 1:50 PM)
--- OUTSIDE RECORDS SUMMARY | 2024-04-29 21:07 | XMS_ITS | Continuity of Care Document ---
Author Organization [facility] Shaheen [facility] Address [address] [place] [address] ve [address] [place] [address]- Care Team Providers Care Financial Compliance Examiner Name Role Phone Sophia Iverson MD Primary Care Physician [facility] Date(s): 05/27/22 - 06/26/22 [facility] [address] [place] [address]- [place] Attending Physician: Danette De Jesus Admitting Physician: [...] Team Personnel Name: Sophia Iverson MD Address: [address] [place] [id number]
--- OUTSIDE RECORDS SUMMARY | 2024-04-29 21:07 | XMS_ITS | Continuity of Care Document ---
Author Organization [facility] Shaheen ronald Address [address] [place] [address] [address] [place] [address]- Care Team Providers Care Consumer Affairs Director Name Role Phone Sophia Iverson MD Primary Care Physician Encounter [facility] Date(s): 03/18/22 - 06/06/22 [facility] [address] [place] [address]- Attending Physician: Yimi Gonzalez MD Referring Physician: Sophia Iverson MD Allergies, Adverse [...] 14:14:00 EDT, 06/03/22 14:14:00 EDT, Tablet, [facility]/pharmacy #[id number], Partial fill upon patient request if the prescription is for a schedule II opioid drug., 1... Start Date: 06/03/22 Stop Date: 06/10/22 Status: Ordered Care Team Personnel Name: Sophia Iverson MD Address: [address] [place] [address]
--- OUTSIDE RECORDS SUMMARY | 2024-04-29 21:07 | XMS_ITS | Continuity of Care Document ---
Author Organization [facility] Shaheen ronald Address [address] [place] [address] Dr[address] [place] [address]- Care Team Providers Care Sledger Name Role Phone Sophia Iverson MD Primary Care Physician [phone] [facility] [place]/23 [facility] [address] [place] [address]- Attending Physician: Ken Murphy MD Allergies, Adverse Reactions, Alerts No Known Allergies Medications Bactrim 400 mg-80 mg oral tablet By Mouth, Every 12 hours, 0 Refills, Maintenance, 05/27/22 11:11:00 EDT, Partial fill upon patient request if the prescription is for a schedule II opioid drug. Start Date: 05/27/22 Status: Ordered Patient Care team information Care Team Personnel Name: Sophia Iverson MD Position: [facility] Outreach Member Role: PCP Address: Address: [address] [place] [id number]- Care Team Related Persons Name: HEAVENLY DUNN Address: home [address] [place] [address] Name: RENATO JANUARY Address: home [address], [place] Name: POLLY VILLAVICENCIO Address: home [address] [place] [id number]
--- OUTSIDE RECORDS SUMMARY | 2024-04-29 21:07 | XMS_ITS | Continuity of Care Document ---
Author Organization [facility] Shaheen ronald Address [address] [place] [address] Pamela traylor [address] [place] [address]- Care Team Providers Care Correctional Nurse Name Role Phone Sophia Iverson MD Primary Care Physician [phone] Encounter [facility] [place] Date(s): 09/29/22 - 10/29/22 [facility] [address] [place] [address]- Attending Physician: Danette De Jesus Admitting Physician: AdmtrDanette Referring Physician: Admtr, [id number] Allergies, Adverse Reactions, Alerts No Known Allergies Medications Bactrim 400 mg-80 mg oral tablet By Mouth, Every 12 hours, 0 Refills, Maintenance, 05/27/22 11:11:00 EDT, Partial fill upon patient request if the prescription is for a schedule II opioid drug. Start Date: 05/27/22 Status: Ordered Patient Care team information Care Team Personnel Name: Sophia Iverson MD Position: [facility] Outreach Member Role: PCP Address: Address: [address] [place] [id number]- Care Team Related Persons Name: HEAVENLY DUNN Address: [address] [place] [address] Name: RENATO JANUARY Address: home [address] [place] [address] Name: POLLY VILLAVICENCIO Address: home [address] [place] [address] [place] [address]
[2024-04-29 21:27] VITALS: BP 122/84; PULSE 70; RESP 16; TEMP 36.2; O2SAT 96
--- NOTE | 2024-04-29 22:27 | PC.NURSE ---
pt declining to wait any longer, sts he has no pain and will follow up with his pcp. declined ama form, self ambulated to exit
== END 2024-04-29 22:30 | disposition left against medical advice (07) ==
PROVIDERS: Emergency Provider Emergency Medicine; PCP Student in an Organized Health Care Education/Training Program
DX: R22.2 Localized swelling, mass and lump, trunk (principal); Z53.21 Procedure and treatment not carried out due to patient leaving prior to being seen by health care provider
CPT/HCPCS: 99281; 99284